=== PATIENT | female | born 1935 | race Caucasian/White ===

== ENCOUNTER 2018-12-01 20:40 | Inpatient (IN) | payer BC ==
[~2018-12-01] VITALS: Ht 160 cm; Wt 57.2 kg
--- NOTE | 2018-12-01 20:50 | NUR ---
BIB AMBULANCE FOR S/S GLF AND R ANKLE DEFORMITY. PT NON- VERBAL . NO S/S OF PAIN NOTED AT THIS TIME. NO DISTRESS. PLACED ON A MONITOR, WILL CONT TO MONITOR,
[2018-12-01] MEDS ORDERED: PROPOFOL 100 ML ONE (20:54)
[2018-12-01 21:03] LABS: BASOPHILS % (AUTO) 0.6 % (0.0-2.0); EOSINOPHILS % (AUTO) 2.1 % (0.0-6.0); HEMATOCRIT 42 % (33-45); HEMOGLOBIN 13.8 g/dL (11.5-14.8); LYMPHOCYTES # (AUTO) 1.7 /CMM (0.8-4.8); MEAN CORPUSCULAR HGB CONC 33 g/dl (31.0-36.0); MEAN CORPUSCULAR VOLUME 93 fL (82-100); MONOCYTES # (AUTO) 0.5 /CMM (0.1-1.30); MONOCYTES % (AUTO) 6.9 % (2.0-12.0); NEUTROPHILS % (AUTO) 67.4 % (43.0-81.0); PLATELET COUNT (AUTO) 345 /CMM (150-450); RED BLOOD CELL COUNT(AUTO) 4.51 MIL/uL (4.0-5.2); WHITE BLOOD COUNT (AUTO) 7.4 K/uL (4.3-11.0)
[2018-12-01 21:14] LABS: CALCIUM, SERUM 9.8 mg/dL (8.5-10.1); CARBON DIOXIDE 24 mmol/L (21-32); CHLORIDE 99 mmol/L (98-107); CREATININE 1.2 mg/dL (0.6-1.3); GLUCOSE 136 mg/dL (74-106); POTASSIUM 4.5 mmol/L (3.5-5.1); SODIUM SERUM 136 mmol/L (136-145); UREA NITROGEN, BLOOD 17 mg/dL (7-18)
--- NOTE | 2018-12-01 21:41 | NUR ---
PT REMAINED IN BED W/ HISBAND AT THE BED SIDE, ON CONTINUOUS MONITORING AND CLOSE OBSERVATION FOR S/P SEDATION, VSS. NO S/S OR C/O PAIN OR DISCOMFORT NOTED.
--- NOTE | 2018-12-01 22:07 | NUR ---
328-2 [facility] ACCEPTING DR MA
[2018-12-01] MEDS ORDERED: PROPOFOL 200 MG/20 ML VIAL IV ONE (22:30)
--- NOTE | 2018-12-01 22:36 | NUR ---
REPORT GIVEN T ANNEMARIE FIERRO ON THE THIRD FLOOR FOR [facility]
[2018-12-01 23:00] VITALS: BP 138/84
--- NOTE | 2018-12-01 23:00 | NUR ---
MS CHANNEL CEMENTER OUTSOLE MACHINE NOTES RECEIVED FORM ER PER SUSIE THIS 83 YO FEMALE,A/ORIENTED X1,EYES OPEN,NONE VERBAL,ACCOMPANIED BY FROM HOME.S/O FALL AT HOME AND SUSTAINED FRACTURE ON RIGHT ANKLE ,S/P CLOSED REDUCTION IN ER WITH DIPRIVAN SEDATION.SPLINTS IN PLACE WRAPPED WITH ELASTIC BANDAGE.ADMITTED FOR FURTHER EVALUATION BY ORTHOPEDIST DOCTOR,POSSIBLE SURGERY.WITH SALINE LOCK LEFT HAND INTACT AND PATENT.NOTED SKIN ABRASION ON LEFT CALIXTO,1.5 X 1.M CM AND 4 X 1.5 CM,CLEANSE WITH NS AND APPLIED HYDROGEL AND COVERED WITH MEPILEX.CONTRACTED BOTH UPPER EXTREMITIES BUT ACCORDING TO ,SHE CAN STILL WALK WITH WALKER WITH ASSIST.INCONTINENT OF URINE.WILL CONTINUE TO MONITOR STATUS.
[2018-12-02] MEDS ORDERED: HYDROCODONE/APAP 10/325MG 1 EA TABLET PO PRN
[2018-12-02] MEDS ORDERED: ZOLPIDEM TARTRATE 5 MG TABLET PO PRN
[2018-12-02] MEDS ORDERED: HYDROCODONE/APAP 5/325MG 1 EACH TABLET PO PRN
[2018-12-02] MEDS ORDERED: ONDANSETRON HCL/PF 4 MG/2 ML VIAL IVP PRN
[2018-12-02] MEDS ORDERED: ENOXAPARIN SODIUM 40 MG/0.4 ML DISP.SYRIN SQ SCH
[2018-12-02] MEDS ORDERED: MAG HYDROX/AL HYDROX/SIMETH 30 ML UDC PO PRN
[2018-12-02] MEDS ORDERED: Z GUARD REMEDY 2 OZ OINT TP PRN
[2018-12-02] MEDS ORDERED: MAGNESIUM HYDROXIDE 30 ML UDC PO PRN
[2018-12-02] MEDS ORDERED: ACETAMINOPHEN 325 MG TABLET PO PRN
[2018-12-02] MEDS ORDERED: DIPH25TA25 PO (00:16)
[2018-12-02] MEDS ORDERED: ATEN50TA PO (00:16)
[2018-12-02] MEDS ORDERED: DONE10TA44 PO (00:16)
[2018-12-02] MEDS ORDERED: MULT-1201 PO (00:16)
[2018-12-02] MEDS ORDERED: CYAN50006 SL (00:16)
[2018-12-02] MEDS ORDERED: MEMA10TA PO (00:16)
[2018-12-02] MEDS ORDERED: DIPH25CA83 PO (00:16)
[2018-12-02] MEDS ORDERED: DIPH-530 PO ×2 (00:16)
[2018-12-02] MEDS ORDERED: CA C-2 PO (00:16)
[2018-12-02] MEDS ORDERED: RISP0.5T20 PO (00:16)
[2018-12-02] MEDS: IV D5/0.45 NACL 1,000 ML IV PRN ×2 (00:26→14:34)
--- NOTE | 2018-12-02 00:26 | NUR ---
MS RN NOTES STARTED ON IVF D5 1/2 NS AT 75ML/HR RATE ORDERED,NPO STATUS ORDERED FOR POSSIBLE SURGICAL INTERVENTION.
--- NOTE | 2018-12-02 00:29 | NUR ---
MS RN NOTES STARTED ON LOVENOX 30MG SQ ORDERED.
[2018-12-02] MEDS ORDERED: ENOXAPARIN SODIUM 30 MG/0.3 ML DISP.SYRIN SQ SCH ×2 (00:30→21:00)
--- NOTE | 2018-12-02 06:10 | NUR ---
MS RN NOTES ON BED,SLEPT WELL.NPO STATUS ORDERED,DRESSING TO LEFT LOWER LEG REMAINS PATENT,IVF IN PROGRESS.IN NO ACTE DISTRESS.WILL ENDORSE TO DAY NURSE FOR [facility]
[2018-12-02 07:16] LABS: BASOPHILS % (AUTO) 0.4 % (0.0-2.0); EOSINOPHILS % (AUTO) 0.9 % (0.0-6.0); HEMATOCRIT 39 % (33-45); HEMOGLOBIN 12.8 g/dL (11.5-14.8); LYMPHOCYTES # (AUTO) 1.2 /CMM (0.8-4.8); MEAN CORPUSCULAR HGB CONC 33 g/dl (31.0-36.0); MEAN CORPUSCULAR VOLUME 92 fL (82-100); MONOCYTES # (AUTO) 0.9 /CMM (0.1-1.30); MONOCYTES % (AUTO) 8.2 % (2.0-12.0); NEUTROPHILS # (AUTO) 8.4 /CMM (1.8-8.9); NEUTROPHILS % (AUTO) 79.5 % (43.0-81.0); PLATELET COUNT (AUTO) 312 /CMM (150-450); RED BLOOD CELL COUNT(AUTO) 4.18 MIL/uL (4.0-5.2); WHITE BLOOD COUNT (AUTO) 10.6 K/uL (4.3-11.0)
[2018-12-02 07:35] LABS: CHOLESTEROL 171 mg/dL (<200); HDL CHOLESTEROL 59 mg/dL (40-60); LDL 97 mg/dL (0-99); THYROID STIMULATING HORMONE 1.895 uIU/mL (0.358-3.74); TRIGLYCERIDES 84 mg/dL (30-150)
[2018-12-02 07:45] LABS: CALCIUM, SERUM 8.8 mg/dL (8.5-10.1); CARBON DIOXIDE 25 mmol/L (21-32); CHLORIDE 101 mmol/L (98-107); CREATININE 0.9 mg/dL (0.6-1.3); GLUCOSE 123 mg/dL (74-106); MAGNESIUM 1.8 mg/dL (1.8-2.4); PHOSPHORUS 3.2 mg/dL (2.5-4.9); POTASSIUM 4.3 mmol/L (3.5-5.1); SODIUM SERUM 136 mmol/L (136-145); UREA NITROGEN, BLOOD 14 mg/dL (7-18)
--- NOTE | 2018-12-02 07:47 | NUR ---
MS RN OPENING NOTES RECEIVED PT LAYING IN BED WITH HOB SLIGHTLY ELEVATED. PT IS RESPONSIVE TO VERBAL AND TACTILE STIMULI. RESPIRATIONS ARE EVEN AND UNLABORED, NOT IN ANY ACUTE DISTRESS NOTED. NO FACIAL GRIMACING OR MOANING NOTED. IV SITE TO L HAND INTACT, NO INFILTRATION NOTED. DRESSING KEPT CLEAN AND DRY. BILATERAL HEELS OFFLOADED. WILL TURN Q2H. SAFETY MEASURES ARE IN PLACE. CALL LIGHT IS LEFT WITHIN REACH. WILL CONTINUE TO MONITOR THROUGHOUT SHIFT FOR CONTINUITY OF CARE.
[2018-12-02 08:00] VITALS: BP_SYST 145; BP_DIAS 73; BP_DIAS 76
--- NOTE | 2018-12-02 09:25 | NUR ---
MS RN NOTES-- PT SEEN AND EXAMINED BY TRACY REYNOLDS NP.
--- NOTE | 2018-12-02 09:35 | NUR ---
MS RN NOTES-- PT SEEN AND EXAMINED BY OREN THORNE OF DR. [place]. PER FADUMO, PT WILL BE SEEN OUTPATIENT AND TO KEEP SPLINT ON. NO SURGERY AT THIS TIME. MADE AWARE AT BEDSIDE.
--- NOTE | 2018-12-02 11:00 | NUR ---
MS RN NOTES-- PT P/U BY RADIOLOGY FOR CT OF RIGHT ANKLE IN STABLE CONDITION VIA SUSIE.
--- NOTE | 2018-12-02 11:30 | NUR ---
MS RN NOTES-- PT CAME BACK FROM RADIOLOGY IN STABLE CONDITION VIA GURNEY. CALL LIGHT LEFT WITHIN REACH.
--- NOTE | 2018-12-02 15:20 | NUR ---
MS RN NOTES-- NOTIFIED OREN OCHOA AND TRACY REYNOLDS NP RE: CT SCAN RESULTS W/ NO NEW ORDERS AT THIS TIME.
[2018-12-02 16:00] VITALS: BP 116/60
--- NOTE | 2018-12-02 18:38 | NUR ---
MS RN CLOSING NOTES NEEDS MET AND RENDERED. PT IS RESPONSIVE TO VERBAL AND TACTILE STIMULI, AFEBRILE. RESPIRATIONS ARE EVEN AND UNLABORED, NOT IN ANY ACUTE DISTRESS NOTED. NO FACIAL GRIMACING OR MOANING NOTED. IV SITE TO L HAND G20 INTACT, NO INFILTRATION NOTED. DRESSING KEPT CLEAN AND DRY. IV FLUIDS RUNNING AT 75ML/HR, TOLERATING WELL. PT ABLE TO URINATE WITH FREQUENT CLEANING, PERINEAL AREA KEPT CLEAN AND DRY, MEPILEX APPLIED TO BONY PROMINENCES. REPOSITIONED Q2H. BILATERAL HEELS OFFLOADED. SAFETY MEASURES ARE IN PLACE. CALL LIGHT IS LEFT WITHIN REACH. WILL ENDORSE TO NEXT SHIFT FOR CONTINUITY OF CARE.
--- NOTE | 2018-12-02 19:30 | NUR ---
MS/RN NOTES RECEIVED PT. LYING IN BED. PT. IS NON-VERBAL, OPENS EYES AND IS RESPONSIVE TO VERBAL AND TACTILE STIMULI. BREATHING EVEN AND UNLABORED ON 2LPM O2 VIA NC. NO SOB, RESPIRATORY DISTRESS OR S/S OF PAIN NOTED AT THIS TIME. PT. WITH LEFT HAND 20 GAUGE PERIPHERAL IV PRESENT, PATENT AND INTACT ADMINISTERING TO PT. D5 1/2 NS @ 75 ML/HR. PT. PRESENT AT BEDSIDE. BED LOCKED AND IN LOWEST POSITION, SIDE RAILS UP X3, BED ALARM ON, WILL CONTINUE TO MONITOR.
[2018-12-02 20:00] VITALS: BP 114/32
[2018-12-03] MEDS: IV D5/0.45 NACL 1,000 ML IV PRN (05:44)
--- NOTE | 2018-12-03 06:12 | NUR ---
MS/RN NOTES PT. IS LYING IN BED RESTING. BREATHING EVEN AND UNLABORED ON 2LPM O2 VIA NC. NO SOB, RESPIRATORY DISTRESS OR S/S OF PAIN NOTED AT THIS TIME. PT. WITH LEFT HAND 20 GAUGE PERIPHERAL IV PRESENT, PATENT AND INTACT ADMINISTERING TO PT. D5 1/2 NS @ 75 ML/HR. ALL PT. NEEDS MET. PT. OFFLOADED, TURNED AND REPOSITIONED Q2H AND NEEDED. BED LOCKED AND IN LOWEST POSITION, SIDE RAILS UP X3, BED ALARM ON, WILL ENDORSE TO DAYSHIFT NURSE FOR CONTINUITY OF CARE.
--- NOTE | 2018-12-03 07:30 | NUR ---
MS RN Opening Note Patient currently resting in bed with eyes closed in Semi-Fowlers position, no acute distress noted. Easily arousable to name. Alert and oriented to self, responsive to verbal and tactile stimuli. Respirations even and unlabored on 2 lpm oxygen via nasal cannula. Peripheral IV access to the left hand 20 gauge, intact, patent and infusing fluids as ordered. Patient's extremities off-loaded, Mepilex protection to bony prominences and on specialty mattress. Aspiration precautions maintained. Safety and fall precautions in place: bed in lowest and locked position, side rails up x2, bed alarm on, call light and personal possessions in reach, room well lit, floor clutter-free. Patient currently clean, dry and comfortable. Will continue to monitor and intervene as needed.
[2018-12-03 08:00] VITALS: BP 129/61
[2018-12-03] MEDS ORDERED: RISPERIDONE 0.5 MG PO SCH (09:00)
[2018-12-03] MEDS ORDERED: MAG OX PO SCH (09:00)
[2018-12-03] MEDS ORDERED: COP PO SCH (09:00)
[2018-12-03] MEDS ORDERED: MEMANTINE HCL 28 MG PO SCH (09:00)
[2018-12-03] MEDS ORDERED: [UNRECOGNIZED DRUG - OTHER] PO SCH (09:00)
[2018-12-03] MEDS ORDERED: ATENOLOL 50 MG TABLET PO SCH (09:00)
[2018-12-03] MEDS ORDERED: MANG PO SCH (09:00)
[2018-12-03] MEDS ORDERED: CA CARB PO SCH (09:00)
[2018-12-03] MEDS ORDERED: D3 PO SCH (09:00)
[2018-12-03 09:02] LABS: BASOPHILS # (AUTO) 0.1 /CMM (0.0-0.2); BASOPHILS % (AUTO) 0.6 % (0.0-2.0); EOSINOPHILS % (AUTO) 2.6 % (0.0-6.0); HEMATOCRIT 34 % (33-45); HEMOGLOBIN 11.3 g/dL (11.5-14.8); LYMPHOCYTES # (AUTO) 1.1 /CMM (0.8-4.8); LYMPHOCYTES % (AUTO) 13.9 % (20.0-44.0); MEAN CORPUSCULAR HGB CONC 34 g/dl (31.0-36.0); MEAN CORPUSCULAR VOLUME 91 fL (82-100); MONOCYTES # (AUTO) 0.9 /CMM (0.1-1.30); MONOCYTES % (AUTO) 11.7 % (2.0-12.0); NEUTROPHILS # (AUTO) 5.7 /CMM (1.8-8.9); NEUTROPHILS % (AUTO) 71.2 % (43.0-81.0); PLATELET COUNT (AUTO) 272 /CMM (150-450); RED BLOOD CELL COUNT(AUTO) 3.68 MIL/uL (4.0-5.2)
[2018-12-03 09:10] LABS: CALCIUM, SERUM 8.6 mg/dL (8.5-10.1); CARBON DIOXIDE 26 mmol/L (21-32); CHLORIDE 100 mmol/L (98-107); CREATININE 0.9 mg/dL (0.6-1.3); GLUCOSE 114 mg/dL (74-106); POTASSIUM 4.1 mmol/L (3.5-5.1); SODIUM SERUM 132 mmol/L (136-145); UREA NITROGEN, BLOOD 9 mg/dL (7-18)
--- NOTE | 2018-12-03 11:29 | NUR ---
WOUND CARE CONSULT: PT PRESENTS WITH REDNESS TO BILATERAL GROIN AREAS AND LEFT LOWER LEG SKIN TEARS, PRESENT ON ADMISSION. PT ALSO NOTED TO HAVE SPLINT DRESSING TO RT LOWER LEG. DEFER TO ORTHO FOR RT LOWER LEG. RECOMMENDATIONS MADE FOR SKIN PROTECTIN AND WOUND CARE. DISCUSSED WITH NURSING STAFF. RECOMMEND DPM CONSULT FOR LEFT LOWER LEG. DR STOVER AWARE OF DPM CONSULT REQUEST. WILL SEE PRN. SUE IN AGREEMENT WITH PLAN OF CARE. Addendum: 12/03/18 at 1131 by DIEGO FARMERU Amended: Links added. Addendum: 12/03/18 at 1134 by DIEGO LEY WNYISSELU PT ON ISOFLEX LOW AIRLOSS BED. CURRFENT RIKKI SCORE IS 11.
[2018-12-03] MEDS ORDERED: CLOTRIMAZOLE 1% 15 GM TUBE TP SCH (11:30)
--- NOTE | 2018-12-03 16:00 | NUR ---
MS agriscience technology instructor Note Patient currently resting in bed with eyes closed in Semi-Fowlers position, no acute distress noted. Easily arousable to name. Alert and oriented to self, responsive to verbal and tactile stimuli. Respirations even and unlabored on 2 lpm oxygen via nasal cannula. Skin assessment completed upon discharge, photos in chart. Dressing noted to the left hanna, clean, dry and intact. Abduction pillow in place. Peripheral IV access to the left hand 20 gauge, removed with catheter tip intact. No redness, swelling or bleeding of the site noted. ID bands removed. Exitcare and discharge instructions given to spouse, verbalized understanding and acknowledged via signature on form. Discharged with all personal belongings and home medications, as noted per form, given to spouse. Discharged home in medically stable condition with EMT personnel in stable condition, family present for discharge.
== END 2018-12-03 16:04 | disposition home health service (06) | DRG 563 ==
LOC: ER 20:45 → MED 22:19
PROVIDERS: ATTEND Nurse Practitioner Acute Care
PROC: 0SSFXZZ Reposition Right Ankle Joint, External Approach (ICD-10-PCS; principal; 2018-12-01)
DX: S82.431A Displaced oblique fracture of shaft of right fibula, initial encounter for closed fracture (principal); W01.0XXA Fall on same level from slipping, tripping and stumbling without subsequent striking against object, initial encounter; S82.51XA Displaced fracture of medial malleolus of right tibia, initial encounter for closed fracture; G30.9 Alzheimer's disease, unspecified; F02.80 Dementia in other diseases classified elsewhere, unspecified severity, without behavioral disturbance, psychotic disturbance, mood disturbance, and anxiety; D69.2 Other nonthrombocytopenic purpura; Y93.9 Activity, unspecified; Y92.009 Unspecified place in unspecified non-institutional (private) residence as the place of occurrence of the external cause
CPT/HCPCS: 36415; 71045-TC; 73610-TC; 73700-TC; 80048-TC; 80061-TC; 83735-TC; 84100-TC; 84443-TC; 85025-TC; 87081-TC; 93307-TC; 97112-TC; 97530-TC; A6402; G0378; G0500; J1650; J2704; J3490; J7040